=== PATIENT | female | born 1965 | race Caucasian/White ===

== ENCOUNTER 2018-12-03 10:24 | Day surgery (SDC) | payer OTHER ==
[2018-12-03] MEDS ORDERED: LIDOCAINE 2% MDV (20MG/ML) 20ML VIAL IV ONE (10:25)
[2018-12-03] MEDS ORDERED: PROPOFOL 10 MG/ML VIAL IV ONE (10:25)
--- NOTE | 2018-12-05 10:43 | Operative Note ---
OPERATION: COLONOSCOPY to the cecum. INDICATION: Family history of colon cancer (father). The patient's last examination was 5 years ago. ANESTHESIA: Intravenous sedation was administered by the department of anesthesiology and included Diprivan titrated to effect. PROCEDURE: Following informed consent from this alert individual including a discussion of the risks and benefits of the procedure and an opportunity for the patient to ask questions, the patient was in the left lateral decubitus position. A digital rectal examination was performed. No abnormalities were noted. Following this, the Olympus [id number] video colonoscope was inserted into the rectum without resistance. The rectal mucosa had a normal appearance with normal folds and distensibility. The colonoscope was advanced up through the colon to the level of the cecum without much difficulty. Throughout the bowel the mucosa appeared normal, the folds were normal, and the bowel was fairly well distensible. The cecum was defined by noting the appendiceal orifice and ileocecal valve. From the base of the cecum, the colonoscope was then withdrawn. Overall, the colon preparation was good. Throughout the bowel upon withdrawal, no abnormalities were noted. There were no polyps seen. Retroflexion in the rectum demonstrated hypertrophied papillae but was otherwise completely unremarkable. The endoscope was straightened and removed. The patient tolerated the procedure well and was returned to the recovery area in stable condition. IMPRESSION: Normal colonoscopy to the cecum with hypertrophied anal papillae. RECOMMENDATIONS: The patient was advised to have recheck colonoscopy in 5 years' time for her family history of colon cancer in her father who unfortunately succumbed to the disease. Followup will also be with Dr. Cervantes. As always, thank you for allowing me to participate in the care of your patient. LASHANDA
== END 2018-12-03 12:50 | disposition home or self-care (01) ==
LOC: HOP 10:24
PROVIDERS: ATTEND Internal Medicine Gastroenterology
DX: Z12.11 Encounter for screening for malignant neoplasm of colon (principal); Z80.0 Family history of malignant neoplasm of digestive organs; K62.89 Other specified diseases of anus and rectum; E11.9 Type 2 diabetes mellitus without complications; I10 Essential (primary) hypertension; E78.00 Pure hypercholesterolemia, unspecified
CPT/HCPCS: 00812; 81025; G0105